=== PATIENT | female | born 1935 | race Hispanic/Latino ===

== ENCOUNTER 2018-01-02 07:45 | Day surgery (SDC) | payer MEDICARE ==
[2018-01-02] VITALS (13 sets, daily range): BP systolic 127–155; BP diastolic 53–68
[~2018-01-02] VITALS: Ht 157.5 cm; Wt 88.9 kg
[~2018-01-02 07:45] MED LIST: AMLO5TAB2 PO; ASPI-555 PO; FURO20TA6 PO; GABA-531 PO; HYDR-2132 PO; HYDR25TA PO; ISOS20TA7 PO; LEVO50TA11 PO; LOSA100T29 PO; METO5 PO; MULT1CAP32 PO; PANT40TA25 PO; PIND10TA2 PO; ROSU10TA PO
[2018-01-02] MEDS ORDERED: SODIUM CHLORIDE 0.9% 1000ML 1,000 ML IV ONE (08:53)
[2018-01-02] MEDS ORDERED: BENZOCAINE 20% 57 GM SPRAY ONE (10:15)
== END 2018-01-02 12:20 | disposition home or self-care (01) ==
LOC: ENDO 07:45 → DAH 07:45 → ENDO 12:20
PROVIDERS: ATTEND Internal Medicine Gastroenterology
DX: K29.50 Unspecified chronic gastritis without bleeding (principal); K44.9 Diaphragmatic hernia without obstruction or gangrene; E66.01 Morbid (severe) obesity due to excess calories; M19.90 Unspecified osteoarthritis, unspecified site; M81.0 Age-related osteoporosis without current pathological fracture; Z68.38 Body mass index [BMI] 38.0-38.9, adult; Z90.49 Acquired absence of other specified parts of digestive tract; Z90.710 Acquired absence of both cervix and uterus; Z98.890 Other specified postprocedural states; Z80.0 Family history of malignant neoplasm of digestive organs; Z79.899 Other long term (current) drug therapy; E78.4 Other hyperlipidemia; I11.0 Hypertensive heart disease with heart failure; I50.32 Chronic diastolic (congestive) heart failure; E11.9 Type 2 diabetes mellitus without complications; E03.9 Hypothyroidism, unspecified
CPT/HCPCS: 43237; 93005; A4606; J7030; 43231

== ENCOUNTER → 2023-08-29 | Outpatient (CLI) | payer MEDICARE ==
[~2023-08-29] MED LIST changes: +AMLO-257 PO; -AMLO5TAB2 PO; -ASPI-555 PO; +ASPI-556 PO; -HYDR-2132 PO; -ISOS20TA7 PO; +ISOS20TA85 PO; -LOSA100T29 PO; +LOSA100T59 PO; -PANT40TA25 PO; -ROSU10TA PO; +ROSU10TA22 PO
== END | disposition home or self-care (01) ==
LOC: RAH 10:54
PROVIDERS: ATTEND Internal Medicine Gastroenterology
DX: K21.9 Gastro-esophageal reflux disease without esophagitis (principal); R68.81 Early satiety; R11.0 Nausea
CPT/HCPCS: 78264; A9541

== ENCOUNTER 2024-08-20 07:33 | Day surgery (SDC) | payer MEDICARE ==
[2024-08-20] VITALS (10 sets, daily range): BP systolic 108–162; BP diastolic 52–62; PULSE 63–73; RESP 14–20; TEMP 97.4–97.9
[~2024-08-20] VITALS: Ht 152.4 cm; Wt 86.2 kg
[~2024-08-20 07:33] MED LIST changes: +ISOS-58 PO; -ISOS20TA85 PO
[2024-08-20] MEDS: 0.9%NACL 1000ML 1,000 ML IV ONE (09:38)
[2024-08-20] MEDS ORDERED: GABA-1405 PO (10:10)
[2024-08-20] MEDS ORDERED: LINA145C PO (10:21)
[2024-08-20] MEDS ORDERED: BUME1TAB6 PO (10:21)
[2024-08-20] MEDS ORDERED: SPIR25TA6 PO (10:21)
[2024-08-20] MEDS ORDERED: ENTA200T5 PO (10:21)
[2024-08-20] MEDS ORDERED: METO-408 PO (10:21)
[2024-08-20] MEDS ORDERED: LACT-441 PO (10:21)
[2024-08-20] MEDS ORDERED: ESCI-8 PO (10:21)
[2024-08-20] MEDS ORDERED: ONDA-104 PO (10:21)
[2024-08-20] MEDS ORDERED: FLUT16H NS (10:21)
[2024-08-20] MEDS ORDERED: SUCR1TAB28 PO (10:21)
[2024-08-20] MEDS ORDERED: WHEA236P PO (10:21)
[2024-08-20] MEDS ORDERED: GUAI100S13 PO (10:21)
[2024-08-20] MEDS ORDERED: TRAZ-185 PO (10:21)
[2024-08-20] MEDS ORDERED: PANT40TA54 PO (10:21)
[2024-08-20] MEDS ORDERED: MELA3CAP2 PO (10:21)
[2024-08-20] MEDS ORDERED: NITR0.4T SL (10:21)
[2024-08-20] MEDS ORDERED: TRAMADOL PO (10:21)
[2024-08-20] MEDS ORDERED: ASCO-440 PO (10:21)
[2024-08-20] MEDS ORDERED: IPRA3AMP24 NEB (10:21)
[2024-08-20] MEDS ORDERED: DOCU100C33 PO (10:21)
[2024-08-20] MEDS ORDERED: proPOFol 10 MG/ML 20ML VIAL IV ONE (11:48)
== END 2024-08-20 13:50 | disposition home or self-care (01) ==
LOC: DAH 07:33 → ENDO 07:33
PROVIDERS: ATTEND Internal Medicine Gastroenterology
DX: K92.1 Melena (principal); K31.89 Other diseases of stomach and duodenum; K22.89 Other specified disease of esophagus; K25.9 Gastric ulcer, unspecified as acute or chronic, without hemorrhage or perforation; D64.9 Anemia, unspecified; I48.91 Unspecified atrial fibrillation; M81.0 Age-related osteoporosis without current pathological fracture; M19.90 Unspecified osteoarthritis, unspecified site; I11.0 Hypertensive heart disease with heart failure; I50.32 Chronic diastolic (congestive) heart failure; E78.5 Hyperlipidemia, unspecified; E03.9 Hypothyroidism, unspecified; K21.9 Gastro-esophageal reflux disease without esophagitis; G20.A1 Parkinson's disease without dyskinesia, without mention of fluctuations; Z95.0 Presence of cardiac pacemaker; Z90.49 Acquired absence of other specified parts of digestive tract; Z90.710 Acquired absence of both cervix and uterus; Z90.89 Acquired absence of other organs; Z96.659 Presence of unspecified artificial knee joint; Z79.899 Other long term (current) drug therapy
CPT/HCPCS: 43239; J7030 ×2; J2704; A4620; A4215; A4223; A7002; A4222; A4221; A4663; A4606; J3490